=== PATIENT | female | born 1970 | race Caucasian/White ===

== ENCOUNTER 2019-08-06 15:39 | Emergency (ER) | payer OTHER ==
[~2019-08-06] VITALS: Ht 175.3 cm; Wt 97.5 kg
[~2019-08-06 15:39] MED LIST: BACTRIM DS TAB1 EACH PO; ELIMITE60 GM TP; MUPIROCIN15 GM TP
[2019-08-06] MEDS ORDERED: MULTIPLE VITAM1 EAC2 PO (15:49)
[2019-08-06 16:12] LABS: ABSOLUTE NEUTROPHILS 5.8 thou/uL (1.4-8.2); BASOPHILS 0.8 % (0.0-2.0); EOSINOPHILS 3.7 % (0.0-3.0); HEMATOCRIT 39.4 % (37.0-47.0); LYMPHOCYTES 25.1 % (24.0-44.0); MCH 29.1 pg (26.0-34.0); MCHC 32.9 g/dL (28.0-37.0); MCV 88.4 fL (80.0-100.0); MONOCYTES 7.3 % (1.0-8.0); PLATELET COUNT 333 thou/uL (150-400); POLYS 63.1 % (36.0-66.0); RBC 4.45 mil/uL (4.20-5.00); RDW 13.7 % (10.5-14.5); WBC 9.2 thou/uL (4.0-11.0)
[2019-08-06 16:15] LABS: CALCIUM 8.9 mg/dL (8.5-10.1); CREATININE 0.8 mg/dL (0.6-1.0); POTASSIUM 3.8 mmol/L (3.5-5.1)
[2019-08-06 16:21] LABS: ALBUMIN 3.4 g/dL (3.4-5.0); MAGNESIUM 1.8 mg/dL (1.8-2.4); TOTAL BILIRUBIN 0.3 mg/dL (<0.1-1.0); TOTAL PROTEIN 6.6 g/dL (6.4-8.2)
[2019-08-06 17:30] VITALS: BP 136/79
[2019-08-06] MEDS ORDERED: MUPIROCIN15 GM TOP (17:33)
[2019-08-06] MEDS ORDERED: NORCO 5-325 TA1 EAC1 PO (17:45)
== END 2019-08-06 17:30 | disposition home or self-care (01) ==
LOC: ER 15:39
PROVIDERS: Physician Assistant
DX: R21 Rash and other nonspecific skin eruption (principal); M79.661 Pain in right lower leg; F17.210 Nicotine dependence, cigarettes, uncomplicated; Z88.1 Allergy status to other antibiotic agents

== ENCOUNTER 2019-12-12 15:33 | Emergency (ER) | payer OTHER ==
[~2019-12-12] VITALS: Ht 170.2 cm; Wt 104.3 kg
[~2019-12-12 15:33] MED LIST changes: +MULTIPLE VITAM1 EAC2 PO; +MUPIROCIN15 GM TOP; +NORCO 5-325 TA1 EAC1 PO
[2019-12-12] MEDS ORDERED: CYMBALTA60 MG PO (16:59)
[2019-12-12] MEDS ORDERED: TYLENOL 8 HOUR650 MG PO (17:00)
[2019-12-12] MEDS ORDERED: AUGMENTIN 875-1 EACH PO (18:30)
[2019-12-12] MEDS ORDERED: TRAMADOL 50 MG50 MG PO (18:30)
[2019-12-12 20:45] VITALS: BP 137/78
== END 2019-12-12 21:02 | disposition home or self-care (01) ==
LOC: ER 15:33
DX: S61.112A Laceration without foreign body of left thumb with damage to nail, initial encounter (principal); S61.215A Laceration without foreign body of left ring finger without damage to nail, initial encounter; S61.213A Laceration without foreign body of left middle finger without damage to nail, initial encounter; W54.0XXA Bitten by dog, initial encounter; F17.210 Nicotine dependence, cigarettes, uncomplicated; Z88.1 Allergy status to other antibiotic agents; Z88.6 Allergy status to analgesic agent

== ENCOUNTER 2020-03-01 06:53 | Emergency (ER) | payer OTHER | END 2020-03-01 09:28 | disposition home or self-care (01) | LOC: ER 06:53 | DX: R03.0 Elevated blood-pressure reading, without diagnosis of hypertension (principal); F17.210 Nicotine dependence, cigarettes, uncomplicated; Z88.1 Allergy status to other antibiotic agents ==